=== PATIENT | female | born 2000 | race African-American/Black ===

== ENCOUNTER 2023-05-09 09:52 | Emergency (ER) | payer BC, SELFPAY ==
[2023-05-09 10:02] VITALS: BP 120/81; PULSE 91; RESP 14; TEMP 36.3; O2SAT 100
--- NOTE | 2023-05-09 10:37 | ED.FEMALEGU ---
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 Patient said she had sexual intercourse for the second time approximately 4 days ago. States the next day she developed vaginal itchiness and try to go to [facility] but they do not have a provider to evaluate her. States she was able to contact her DAY CARE DIRECTOR who sent her prescription for Diflucan. Patient states she took the Diflucan yesterday and has had some improvement but wanted to get checked for STDs. She does state that she has a history of trichomonas and is concerned she may have another STD. She denies changes in her vaginal discharge, vaginal bleeding, abdominal pain, nausea, vomiting, diarrhea, dysuria or hematuria, sore throat or eye drainage. She does state that her sexual partner used a condom. Patient does state that has not been able to have a successful vaginal exam in the past due to pain when the speculum is inserted. Related Data Allergies Allergy/AdvReac Type Severity Reaction Status Date / Time No Known Allergies Allergy Verified 05/09/23 10:05 Review of Systems Review of Systems: CONSTITUTIONAL: Denies fever, chills EYES: Denies visual changes, redness, or discharge. ENT: Denies rhinorrhea, congestion, sore throat, or otalgia. CARDIOVASCULAR: Denies chest pain, palpitations, or edema. RESPIRATORY: Denies cough or dyspnea. GASTROINTESTINAL: Denies abdominal pain, nausea, vomiting, or diarrhea. GENITOURINARY: See HPI SKIN: Denies rash or itching. MUSCULOSKELETAL: Denies back pain, joint pain, or myalgia. NEUROLOGIC: Denies headache, numbness, dizziness, or weakness. PSYCHIATRIC: Denies anxiety or depression. Exam Narrative: GENERAL: Well-appearing, in no acute distress. Patient resting comfortably in exam bed. She is pleasant and conversational. HEAD: Normocephalic NECK: Supple. CHEST: No respiratory distress. Clear to auscultation, no adventitious breath sounds. HEART: Regular rate and rhythm. No murmur heard. Normal peripheral pulses. ABDOMEN: Soft, nontender, normal active bowel sounds. No CVA tenderness. : No external rashes, lesions, edema or erythema to external genitalia. Unable to advance speculum very far due to patient's intolerance of exam. No vaginal lesions from what was visualized. Scant amount of white physiological discharge. Cervix not visualized. Unable to perform bimanual exam. EXTREMITIES: Normal range of motion. No edema. SKIN: Warm, dry, no rash. NEURO: No focal deficits. Alert and oriented x3. PSYCH: Normal mood and affect. Course Vital Signs Vital signs: Vital Signs Temperature 97.3 F L 05/09/23 10:02 Pulse Rate 91 05/09/23 10:02 Respiratory Rate 14 05/09/23 10:02 Blood Pressure 120/81 05/09/23 10:02 Pulse Oximetry 100 05/09/23 10:02 Oxygen Delivery Room Air 05/09/23 10:02 Temperature 97.3 F L 05/09/23 10:02 Pulse Rate 91 05/09/23 10:02 Respiratory Rate 14 05/09/23 10:02 Blood Pressure 120/81 05/09/23 10:02 Pulse Oximetry 100 05/09/23 10:02 Oxygen Delivery Room Air 05/09/23 10:02 MDM - Female Genitourinary MDM Narrative Medical decision making narrative: 23-year-old female reports for evaluation for concern for STDs due to vaginal pruritus. See HPI for further history. Vitals are stable and she is well-appearing on exam. Abdomen is soft and nontender. exam limited secondary to patient's intolerance to speculum exam. See exam above. Vaginal swabs collected. Gonorrhea, chlamydia and trichomonas test negative. Genital culture ordered and pending. Labs discussed with the patient. Given limited exam, will provide a second dose of Diflucan for her to take in 2 days if symptoms persist. Encouraged her to check the online portal for culture results and
[2023-05-09 11:09] LABS: Appearance Urine Clear (Clear); Bilirubin Urine Negative (Negative); Blood Urine Negative (Negative); Color Urine Yellow (Yellow); Glucose Urine UA Negative (Negative); Ketones Urine Negative (Negative); Leukocyte Esterase Ur Negative LEU/UL (Negative); Nitrate Urine Negative (Negative); Protein Urine Negative (Negative); Specific Grav Ur 1.017 (1.001-1.035); Urobilinogen Urine 0.2 mg/dL (<2.0); pH Urine 5.5 (5.0-9.0)
[2023-05-09 11:24] LABS: Add Urine Microscopic? NO
[2023-05-09 12:01] LABS: Trichomonas Vag PCR NOT DETECTED (NOT DETECTE)
[2023-05-09 14:07] LABS: Chlamydia trachomatis NOT DETECTED (NOT DETECTE); Neisseria gonorrhoeae PCR NOT DETECTED (NOT DETECTE)
== END 2023-05-09 14:20 | disposition home or self-care (01) ==
PROVIDERS: Emergency Provider Physician Assistant
DX: B37.31 Acute candidiasis of vulva and vagina (principal)
CPT/HCPCS: 81003; 81025; 87070; 87491; 87591; 87661; 99284